=== PATIENT | female | born 1980 | race Caucasian/White ===

== ENCOUNTER → 2019-07-08 16:36 | Outpatient (CLI) | payer MEDICARE, SELFPAY | PROVIDERS: Visit Provider Obstetrics & Gynecology | DX: Z34.90 Encounter for supervision of normal pregnancy, unspecified, unspecified trimester (principal) | CPT/HCPCS: 36415; 84702 ==

== ENCOUNTER → 2019-07-11 12:23 | Outpatient (CLI) | payer MEDICARE, SELFPAY ==
[2019-07-11 13:31] LABS: Basophils # 0.1 K/mm3 (0-0.2); Basophils % 0.7 % (0.1-2.0); Eosinophils # 0.2 K/mm3 (0.0-0.4); Eosinophils % 2.2 % (0.1-12.0); Hematocrit 43.7 % (37.0-47.0); Hemoglobin 14.1 g/dL (12.2-16.2); Lymphocytes # 3.3 K/mm3 (0.7-4.5); Lymphocytes % 32.8 % (10-50); Mean Corpuscular HGB Conc 32.2 g/dL (31.8-35.4); Mean Corpuscular Volume 89.9 fl (81-99); Monocytes # 0.5 K/mm3 (0.1-1.0); Monocytes % 4.5 % (1.7-9.3); Neutrophils % 59.8 % (37.0-80.0); Platelet Count 503 K/mm3 (142-424); Red Blood Count 4.86 M/mm3 (4.20-5.40); Red Cell Distribution Width 13.8 % (11.5-17.5)
[2019-07-11 15:15] LABS: HCG,Quantitative 38431 mIU/mL
[2019-07-14 06:36] LABS: Hepatitis C Antibody <0.1 s/co ratio (0.0-0.9); Rapid Plasma Reagin Ab Titer Non Reactive (NonRea<1:1); Rubella Antibodies, IgG 2.11 index (Immune >0.99)
== END ==
PROVIDERS: Visit Provider Obstetrics & Gynecology
DX: Z34.90 Encounter for supervision of normal pregnancy, unspecified, unspecified trimester (principal)
CPT/HCPCS: 84702; 85025; 86592; 86762; 86850; 87380

== ENCOUNTER → 2019-07-16 12:54 | Outpatient (CLI) | payer MEDICARE, SELFPAY ==
--- NOTE | 2019-07-16 12:55 | US_ITS ---
PROCEDURE: US OB TRANSVAGINAL CLINICAL INDICATION: US OB Dates Early Ob check COMPARISON: No exams were available for comparison FINDINGS: An intrauterine gestational sac is present with a pole with a crown-rump length of 0.28 cm correlating to gestational age of 6 week. Heart flicker is noted but definite heart rate was not able to be obtained. 12 mm right corpus luteum cyst IMPRESSION: Live IUP at 6 weeks. Unable to get heart rate. Estimated due date by Ultrasound is 03/10/2020 Dictated by: Bronson Rossi MD 07/16/2019 13:47 Electronically signed by Bronson Rossi MD in [place] 07/16/2019 13:47
== END ==
PROVIDERS: PCP Obstetrics & Gynecology; Visit Provider Obstetrics & Gynecology
DX: O26.841 Uterine size-date discrepancy, first trimester (principal)
CPT/HCPCS: 76817

== ENCOUNTER → 2019-07-25 10:26 | Outpatient (CLI) | payer MEDICARE, MEDICAID, SELFPAY ==
--- NOTE | 2019-07-25 10:30 | US_ITS ---
PROCEDURE: US OB TRANSVAGINAL CLINICAL INDICATION: US OB T/V- Fetus Viability Follow-up early Ob ultrasound COMPARISON: US OB TRANSVAGINAL from 07/16/2019 FINDINGS: An intrauterine gestational sac is present with a pole with a crown-rump length of 0.22 cm correlating to gestational age of 5 weeks 6 days. heart tones are not visualized.. The crown-rump length is 2.2 mm. The crown-rump length was 2.8 mm on 07/16/2019. There is a small amount of fluid noted in the subendometrial area. There is a 15 mm right ovarian cyst. IMPRESSION: No heart flicker is evident on today's study and the crown-rump length is slightly smaller compared to the previous exam consistent with nonviable gestation. A small amount of fluid is present in the sub endometrial region. Dictated by: Bronson Rossi MD 07/25/2019 18:47 Electronically signed by Bronson Rossi MD in [place] 07/25/2019 18:47
== END ==
PROVIDERS: PCP Obstetrics & Gynecology; Visit Provider Obstetrics & Gynecology
DX: Z34.90 Encounter for supervision of normal pregnancy, unspecified, unspecified trimester (principal)
CPT/HCPCS: 76817

== ENCOUNTER → 2019-07-28 13:47 | Outpatient (CLI) | payer MEDICARE, MEDICAID, SELFPAY ==
[2019-07-28 16:04] LABS: HCG,Quantitative 71757 mIU/mL
== END ==
PROVIDERS: Visit Provider Obstetrics & Gynecology
DX: Z34.90 Encounter for supervision of normal pregnancy, unspecified, unspecified trimester (principal)
CPT/HCPCS: 36415; 84702

== ENCOUNTER → 2019-07-30 08:58 | Outpatient (CLI) | payer MEDICARE, MEDICAID, SELFPAY ==
--- NOTE | 2019-07-30 09:01 | US_ITS ---
PROCEDURE: US OB TRANSVAGINAL CLINICAL INDICATION: US T/V OB- Check viability COMPARISON: US OB TRANSVAGINAL from 07/25/2019 FINDINGS: There is an intrauterine gestational sac once again noted. A pole is present with a crown-rump length 2.5 mm correlating to gestational age of 5 weeks and 6 days. This is not significantly changed. No heart tones are present. The gestational sac has a somewhat irregular appearance and there is a small amount fluid around the endometrial area. There is a 14 mm right ovarian corpus luteum cyst. IMPRESSION: There is a gestational sac present with a pole but no heart tones. The pole is not changed in size. The findings are suggestive of nonviable gestation.. Dictated by: Bronson Rossi MD 07/30/2019 19:06 Electronically signed by Bronson Rossi MD in [place] 07/30/2019 19:06
== END ==
PROVIDERS: Visit Provider Obstetrics & Gynecology
DX: O36.80X0 Pregnancy with inconclusive fetal viability, not applicable or unspecified (principal)
CPT/HCPCS: 76817

== ENCOUNTER → 2019-08-27 13:14 | Outpatient (CLI) | payer MEDICARE, MEDICAID, SELFPAY ==
--- NOTE | 2019-08-27 13:15 | US_ITS ---
PROCEDURE: US TRANSVAGINAL CLINICAL INDICATION: US T/V- F/U on miscarriage The COMPARISON: US OB TRANSVAGINAL from 08/18/2019 FINDINGS: The uterus is 10 x 5 x 5 cm. Empty gestational sac once again noted measuring 3.7 x 0.8 cm. No pole or yolk sac apparent. There is a 13 mm right ovarian cyst. No cul-de-sac fluid is evident. IMPRESSION: Overall no significant change in the anechoic gestational sac. Dictated by: Bronson Rossi MD 08/27/2019 13:54 Electronically signed by Bronson Rossi MD in [place] 08/27/2019 13:54
== END ==
PROVIDERS: PCP Obstetrics & Gynecology; Visit Provider Obstetrics & Gynecology
DX: O03.4 Incomplete spontaneous abortion without complication (principal); R10.2 Pelvic and perineal pain
CPT/HCPCS: 76830

== ENCOUNTER → 2019-09-22 17:11 | Outpatient (CLI) | payer MEDICARE, MEDICAID, SELFPAY ==
[2019-09-22 17:32] LABS: Basophils # 0.1 K/mm3 (0-0.2); Basophils % 0.9 % (0.1-2.0); Eosinophils # 0.2 K/mm3 (0.0-0.4); Eosinophils % 2.3 % (0.1-12.0); Hematocrit 45.3 % (37.0-47.0); Hemoglobin 14.9 g/dL (12.2-16.2); Lymphocytes # 2.9 K/mm3 (0.7-4.5); Lymphocytes % 32.1 % (10-50); Mean Corpuscular HGB Conc 32.9 g/dL (31.8-35.4); Mean Corpuscular Hemoglobin 29.1 pg (27.0-31.2); Mean Corpuscular Volume 88.5 fl (81-99); Mean Platelet Volume 7.4 fl (7.4-10.4); Monocytes # 0.5 K/mm3 (0.1-1.0); Neutrophils # 5.2 K/mm3 (1.8-7.8); Neutrophils % 58.6 % (37.0-80.0); Platelet Count 477 K/mm3 (142-424); Red Blood Count 5.12 M/mm3 (4.20-5.40); Red Cell Distribution Width 13.2 % (11.5-17.5); White Blood Count 8.9 K/mm3 (4.8-10.8)
== END ==
PROVIDERS: Visit Provider Obstetrics & Gynecology
DX: O03.4 Incomplete spontaneous abortion without complication (principal)
CPT/HCPCS: 36415; 85025

== ENCOUNTER 2020-01-14 20:19 | Emergency (ER) | payer MEDICARE, MEDICAID, SELFPAY ==
[2020-01-14 20:41] VITALS: BP 138/85; PULSE 103; RESP 16; TEMP 37.2; O2SAT 96; BMI 29.7
--- NOTE | 2020-01-14 20:52 | XR_ITS ---
PROCEDURE: XR CHEST 2V CLINICAL HISTORY: chest pain COMPARISON: XR CHEST 2V from 04/27/2019 XR CHEST 2V from 04/29/2019 XR CHEST PORTABLE from 11/18/2019 FINDINGS: The cardiomediastinal silhouette and pulmonary vascularity are within normal limits. The lungs are clear without infiltrates, suspicious nodules, or pleural effusions. No acute bony abnormalities. IMPRESSION: No acute findings. Dictated by: Bronson Rossi MD 01/14/2020 22:41 Electronically signed by Bronson Rossi MD in [place] 01/14/2020 22:41
--- NOTE | 2020-01-14 20:55 | ECG_ITS ---
APPROVED REPORT Exam: Resting ECG HR:86 bpm ECG Measurements Heart Rate 86 AXES OR 124 P 51 QRSd 76 QRS 33 QT 362 T 20 QTc 433 <Conclusion> Normal sinus rhythm Normal ECG Electronically signed by : Sanjiv Machado, 01/16/2020 14:01:00
[2020-01-14 21:04] LABS: Microscopic, Urine URINE MICROSCOPIC (MICROSCOPIC)
[2020-01-14 21:10] LABS: Appearance,Urine CLEAR (Clear); Bilirubin,Urine Negative (Negative); Blood, Urine 2+ (Negative); Color,Urine YELLOW (Yellow); Glucose,Urine (UA) Negative (Negative); Ketones,Urine Negative (Negative); Leukocyte Esterase,Urine Negative (Negative); Nitrate,Urine Negative (Negative); Protein,Urine Negative (Negative); Specific Gravity, Urine >= 1.030 (1.005-1.030); Urobilinogen,Urine 0.2 EU/dl (0.2)
[2020-01-14 21:12] LABS: Chloride 104 mmol/L (98-107); Potassium 3.8 mmoL/L (3.5-5.1); Sodium 141 mmol/L (136-145)
[2020-01-14 21:15] LABS: Alanine Aminotransferase 17 U/L (12-78); Albumin Level 4.8 g/dl (3.5-5.0); Alkaline Phosphatase 42 U/L (38-126); Anion Gap 12.8 mEq/L (5-15); Aspartate Amino Transferase 24 U/L (14-36); Bilirubin,Direct 0.3 mg/dl (0.0-0.4); Bilirubin,Indirect 0.4 mg/dL (0.0-0.9); Bilirubin,Total 0.7 mg/dl (0.2-1.3); Bilirubin,Unconjugated 0.5 mg/dL (0.0-1.1); Blood Urea Nitrogen 11 mg/dl (7-17); Calcium 9.8 mg/dl (8.4-10.2); Carbon Dioxide 28 mmol/L (22.0-30.0); Creatinine Clearance Estimated 104 mL/min (50-200); Estimated Glomerular Filt Rate 80 ml/min (>60); GFR (African American) 97 ML/MIN (>60); Glucose 99 mg/dl (74-100); Total Protein,Serum 8.2 g/dl (6.3-8.2)
[2020-01-14 21:18] LABS: Urine Pregnancy, HCG Qual. Negative (Negative)
[2020-01-14 21:19] LABS: Bacteria,Urine Trace /lpf; WBC,Urine Occasional #/hpf (0-3)
[2020-01-14 21:20] VITALS: BP 132/83; PULSE 94; RESP 16; O2SAT 98
[2020-01-14 21:20] LABS: Barbiturates Screen,Urine Negative ng/ml (<200)
[2020-01-14 21:21] LABS: Benzodiazepines Screen,Urine Negative ng/ml (<200)
[2020-01-14 21:22] LABS: Amphetamine/Metha Screen,Urine Negative ng/ml (<1000); Cannabinoid Screen,Urine Negative ng/ml (<50)
[2020-01-14 21:23] LABS: Cocaine Screen,Urine Negative ng/ml (<300)
[2020-01-14 21:24] LABS: Methadone Screen,Urine Negative ng/ml (<300); Opiate Screen,Urine Negative ng/ml (<300)
[2020-01-14 21:25] LABS: Phencyclidine Screen,Urine Negative ng/ml (<25)
--- NOTE | 2020-01-14 21:29 | HMH.EDCP ---
ED Disposition Clinical Impression: Atypical chest pain, Thrombocytosis Upper extremity pain Qualifiers: Laterality: bilateral Qualified Code(s): M79.601 - Pain in right arm; M79.602 - Pain in left arm Disposition: Home, Self-Care Condition on Discharge: Good Instructions: DI for Atypical Chest Pain Additional Instructions: see pcp in am as planned Referrals: Provider,Referral, [Primary Care Provider] - - Critical Care Critical Care Time: No Attestation: On 01/14/20, the high probability of a clinically significant, sudden or life threatening deterioration of the following system(s) required my full and direct attention, intervention and personal management. The time I documented below is in addition to time spent performing reported procedures but includes the following listed in this critical care notation. Medical Decision Making - Medical Records Medical records reviewed: Yes: I reviewed the patient's medical records. - Ger Inquiry Pt receiving controlled substance: No Vital Signs: 01/14/20 20:41 Temperature 99.0 F Temperature Source Oral Pulse Rate [Right] 103 H Respiratory Rate 16 Blood Pressure [Right Arm] 138/85 Blood Pressure Mean [Right Arm] 102 Blood Pressure Source [Right Arm] Automatic Cuff Blood Pressure Position [Right Arm] Sitting 02 Sat by Pulse Oximetry 96 Oxygen Delivery Method Room Air - Lab Data Lab results reviewed: Yes: I reviewed the patient's lab results. Lab Results 01/14/20 21:00: Urine Color Yellow, Urine Appearance Clear, Urine pH 6.0, Ur Specific [place] >= 1.030, Urine Protein Negative, Urine Glucose (UA) Negative, Urine Ketones Negative, Urine Blood 2+, Urine Nitrate Negative, Urine Bilirubin Negative, Urine Urobilinogen 0.2, Ur Leukocyte Esterase Negative, Urine WBC Occasional, Ur Squamous Epith Cells 5-10, Urine Bacteria Trace 01/14/20 21:00: WBC 10.1, RBC 5.15, Hgb 15.3, Hct 44.2, MCV 85.8, MCH 29.7, MCHC 34.5, RDW 13.4, Plt Count 457 H, MPV 7.5, Neut % (Auto) 57.0, Lymph % (Auto) 30.9, [place] % (Auto) 6.5, Eos % (Auto) 3.6, Baso % (Auto) 2.0, Neut # (Auto) 5.8, Lymph # (Auto) 3.1, [place] # (Auto) 0.7, Eos # (Auto) 0.4, Baso # (Auto) 0.2 01/14/20 21:00: Urine HCG, Qual Negative 01/14/20 21:00: Sodium 141, Potassium 3.8, Chloride 104, Carbon Dioxide 28, Anion Gap 12.8, BUN 11, Creatinine 0.80, Estimated Creat Clear 104, Estimated GFR 80, Est GFR ( Amer) 97, Glucose 99, Calcium 9.8, Total Bilirubin 0.7, Direct Bilirubin 0.3, Conjugated Bilirubin 0.0, Indirect Bilirubin 0.4, Unconjugated Bilirubin 0.5, AST 24, ALT 17, Alkaline Phosphatase 42, Troponin I < 0.01, Total Protein 8.2, Albumin 4.8 01/14/20 21:00: Urine Opiates Screen Negative, Urine Methadone Screen Negative, Ur Barbituates Screen Negative, Ur Phencyclidine Scrn Negative, Ur Amphetamines Screen Negative, U Benzodiazepines Scrn Negative, Urine Cocaine Screen Negative, U Marijuana (THC) Screen Negative Result diagrams: 01/14/20 21:00 01/14/20 21:00 Orders (Tests/Meds): ED MEDICATIONS Generic Name Dose Route Start Last Admin Trade Name Freq PRN Reason Stop Dose Admin Sodium Chloride 1,000 mls @ 999 mls/hr 01/14/20 21:00 01/14/20 21:07 Sod Chlor 0.9% 1000ml Bag IV 01/14/20 22:00 999 mls/hr .Q1H1M SADIQ Administration ORDERS Category Date Time Status XR chest 2V Stat Exams 01/14/20 20:52 Taken C-Reactive Protein Stat Lab 01/14/20 22:21 Ordered ESR [Erythrocyte Sedimentation Rate] Stat Lab 01/14/20 22:21 Ordered Peripheral Smear Review Routine Lab 01/14/20 22:27 Ordered T4 (Thyroxine) Stat Lab 01/14/20 22:21 Ordered TSH [Thyroid Stimulating Hormone] Stat Lab 01/14/20 22:21 Ordered Troponin I Q3H Lab 01/14/20 22:21 Ordered Troponin I Q3H Lab 01/15/20 02:53 Ordered - Radiology Data #1 Image(s): Chest Image Reviewed: Yes I reviewed the patient's radiology image Preliminary Findings: Normal/NAD - ECG Data Tracing #1 Normal Sinus Rhythm: Yes Ischemic
[2020-01-14 21:31] LABS: Basophils # 0.2 K/mm3 (0-0.2); Eosinophils # 0.4 K/mm3 (0.0-0.4); Eosinophils % 3.6 % (0.1-12.0); Hematocrit 44.2 % (37.0-47.0); Hemoglobin 15.3 g/dL (12.2-16.2); Lymphocytes # 3.1 K/mm3 (0.7-4.5); Lymphocytes % 30.9 % (10-50); Mean Corpuscular HGB Conc 34.5 g/dL (31.8-35.4); Mean Corpuscular Hemoglobin 29.7 pg (27.0-31.2); Mean Corpuscular Volume 85.8 fl (81-99); Mean Platelet Volume 7.5 fl (7.4-10.4); Monocytes # 0.7 K/mm3 (0.1-1.0); Monocytes % 6.5 % (1.7-9.3); Neutrophils # 5.8 K/mm3 (1.8-7.8); Platelet Count 457 K/mm3 (142-424); Red Blood Count 5.15 M/mm3 (4.20-5.40); Red Cell Distribution Width 13.4 % (11.5-17.5); White Blood Count 10.1 K/mm3 (4.8-10.8)
[2020-01-14 21:33] LABS: Troponin I < 0.01 ng/ml (0.00-0.034)
[2020-01-14 22:17] VITALS: BP 127/79; PULSE 87; RESP 16; O2SAT 97
[2020-01-14 23:08] LABS: Erythrocyte Sedimentation Rate 5 mm/hr (0-20)
[2020-01-14 23:11] VITALS: BP 118/72; PULSE 76; RESP 16; O2SAT 98
[2020-01-14 23:29] LABS: T4 (Thyroxine) 8.9 ug/dl (5.53-11.0)
[2020-01-14 23:31] VITALS: BP 111/66; PULSE 66; RESP 16; TEMP 37.2; O2SAT 96
[2020-01-14 23:43] LABS: Thyroid Stimulating Hormone 0.98 uIU/mL (0.465-4.68)
[2020-01-16 22:29] LABS: Peripheral Smear Review Scanned Result
== END 2020-01-14 23:32 | disposition home or self-care (01) ==
PROVIDERS: Emergency Provider Emergency Medicine
DX: R07.89 Other chest pain (principal); D47.3 Essential (hemorrhagic) thrombocythemia; M79.601 Pain in right arm; M79.602 Pain in left arm; F17.210 Nicotine dependence, cigarettes, uncomplicated; Z90.49 Acquired absence of other specified parts of digestive tract; R20.2 Paresthesia of skin
CPT/HCPCS: 71046; 80048; 80076; 80305; 81001; 81025; 84436; 84443; 84484; 85025; 85651; 86140; 93005; 96365; 96375; 99284

== ENCOUNTER → 2020-01-26 14:00 | Outpatient (CLI) | payer MEDICARE, MEDICAID, SELFPAY ==
--- NOTE | 2020-01-26 14:03 | US_ITS ---
PROCEDURE: US THYROID CLINICAL INDICATION: THYROMEGALY COMPARISON: No exams were available for comparison FINDINGS: Right lobe: Right lobe is 3.9 x 1.1 x 1.4 cm. There is a 5 x 5 mm isoechoic nodule in the lower pole unchanged Left lobe: 3.7 x 1.2 x 1.6 cm Isthmus: Unremarkable Additional findings: IMPRESSION: No change 5 mm nodule in the right. No new nodules evident Dictated by: Bronson Rossi MD 01/26/2020 18:52 Electronically signed by Bronson Rossi MD in [place] 01/26/2020 18:52
--- NOTE | 2020-01-26 15:22 | MR_ITS ---
PROCEDURE: MR HEAD/BRAIN WO CON CLINICAL INDICATION: PARESTHESIA OF SKIN, HEADACHES Severe headache, facial numbness a COMPARISON: No exams were available for comparison TECHNIQUE: Routine multiplanar multi echo sequences are performed without gadolinium enhancement. FINDINGS: No midline shift, mass effect, intracranial hemorrhage, or hydrocephalus. No evidence of acute infarction. The cerebellopontine angles, cerebellum, and brainstem are unremarkable. The pituitary, optic chiasm, corpus callosum, and craniocervical junction have an unremarkable appearance. No mastoid effusion. There is mild mucosal thickening of the paranasal sinuses without air-fluid level. IMPRESSION: No acute intracranial findings. Dictated by: Bronson Rossi MD 01/27/2020 14:20 Electronically signed by Bronson Rossi MD in [place] 01/27/2020 14:20
== END ==
PROVIDERS: PCP Nurse Practitioner Family; Visit Provider Nurse Practitioner Family
DX: E01.0 Iodine-deficiency related diffuse (endemic) goiter (principal); R20.2 Paresthesia of skin; R20.0 Anesthesia of skin; R51 Headache
CPT/HCPCS: 70551; 76536

== ENCOUNTER → 2020-01-27 09:42 | Outpatient (CLI) | payer MEDICARE, MEDICAID, SELFPAY ==
[2020-01-27 11:49] LABS: Free Thyroxine Index 2.4 ug/dL (5.93-13.13); T4 (Thyroxine) 7.6 ug/dl (5.53-11.0); Triiodothryronine (T3) Uptake 32 % (23.5-40.5)
[2020-01-27 12:03] LABS: Thyroid Stimulating Hormone 1.35 uIU/mL (0.465-4.68)
[2020-01-28 09:41] LABS: Progesterone 8.4 ng/mL (.)
== END ==
PROVIDERS: Visit Provider Obstetrics & Gynecology
DX: N92.6 Irregular menstruation, unspecified (principal); Z79.899 Other long term (current) drug therapy
CPT/HCPCS: 36415; 84144; 84436; 84443; 84479

== ENCOUNTER → 2020-03-01 13:49 | Outpatient (CLI) | payer MEDICARE, MEDICAID, SELFPAY ==
[2020-03-01 16:07] LABS: HCG,Quantitative 69 mIU/ml (0-5.42)
== END ==
PROVIDERS: Visit Provider Obstetrics & Gynecology
DX: R10.2 Pelvic and perineal pain (principal); Z32.00 Encounter for pregnancy test, result unknown
CPT/HCPCS: 36415; 84702

== ENCOUNTER → 2020-03-03 14:41 | Outpatient (CLI) | payer MEDICARE, MEDICAID, SELFPAY ==
[2020-03-03 15:59] LABS: HCG,Quantitative 202 mIU/ml (0-5.42)
== END ==
PROVIDERS: Visit Provider Obstetrics & Gynecology
DX: R10.2 Pelvic and perineal pain (principal); Z32.00 Encounter for pregnancy test, result unknown
CPT/HCPCS: 36415; 84702

== ENCOUNTER → 2020-03-08 11:39 | Outpatient (CLI) | payer MEDICARE, MEDICAID, SELFPAY ==
[2020-03-08 12:51] LABS: HCG,Quantitative 3495 mIU/ml (0-5.42)
== END ==
PROVIDERS: Visit Provider Obstetrics & Gynecology
DX: R10.2 Pelvic and perineal pain (principal); Z32.00 Encounter for pregnancy test, result unknown
CPT/HCPCS: 36415; 84702

== ENCOUNTER → 2020-03-11 12:21 | Outpatient (CLI) | payer MEDICARE, MEDICAID, SELFPAY ==
[2020-03-11 13:44] LABS: HCG,Quantitative 13499 mIU/ml (0-5.42)
== END ==
PROVIDERS: Visit Provider Obstetrics & Gynecology
DX: R10.2 Pelvic and perineal pain (principal); Z32.00 Encounter for pregnancy test, result unknown
CPT/HCPCS: 36415; 84702

== ENCOUNTER → 2020-03-19 11:26 | Outpatient (CLI) | payer MEDICARE, MEDICAID, SELFPAY ==
--- NOTE | 2020-03-19 11:27 | US_ITS ---
PROCEDURE: US OB TRANSVAGINAL CLINICAL INDICATION: US OB Dates LMP: 02/03/2020 COMPARISON: US OB TRANSVAGINAL from 08/18/2019 FINDINGS: An intrauterine gestational sac is present with a pole with a crown-rump length of 0.55cm correlating to gestational age of 6weeks 4days. heart tones are present with an FHR of 121bpm. Yolk sac is noted. Normal appearing bilateral ovaries. IMPRESSION: A single alive intrauterine is seen with estimated gestational age: 6 weeks 4 days and SAMEER 11/08/2020. Based on LMP gestational age: 6 weeks 3 days and SAMEER: 11/09/2020. Dictated by: Cyn Streeter 03/19/2020 12:13 Electronically signed by Cyn Streeter in [place] 03/19/2020 12:13
== END ==
PROVIDERS: PCP Nurse Practitioner Family; Visit Provider Obstetrics & Gynecology
DX: O26.841 Uterine size-date discrepancy, first trimester (principal)
CPT/HCPCS: 76817

== ENCOUNTER → 2020-03-31 14:56 | Outpatient (CLI) | payer MEDICARE, MEDICAID, SELFPAY ==
[2020-03-31 15:31] LABS: Basophils # 0.1 K/mm3 (0-0.2); Basophils % 0.4 % (0.1-2.0); Eosinophils # 0.2 K/mm3 (0.0-0.4); Eosinophils % 1.8 % (0.1-12.0); Hematocrit 39.9 % (37.0-47.0); Hemoglobin 13.5 g/dL (12.2-16.2); Lymphocytes # 2.1 K/mm3 (0.7-4.5); Lymphocytes % 15.4 % (10-50); Mean Corpuscular HGB Conc 33.9 g/dL (31.8-35.4); Mean Corpuscular Hemoglobin 29.6 pg (27.0-31.2); Mean Corpuscular Volume 87.2 fl (81-99); Mean Platelet Volume 7.6 fl (7.4-10.4); Monocytes # 0.5 K/mm3 (0.1-1.0); Monocytes % 3.8 % (1.7-9.3); Neutrophils # 10.7 K/mm3 (1.8-7.8); Neutrophils % 78.6 % (37.0-80.0); Platelet Count 407 K/mm3 (142-424); Red Blood Count 4.57 M/mm3 (4.20-5.40); Red Cell Distribution Width 13.7 % (11.5-17.5); White Blood Count 13.6 K/mm3 (4.8-10.8)
[2020-03-31 23:01] LABS: Amphetamine/Metha Screen,Urine Negative ng/ml (<1000); Barbiturates Screen,Urine Negative ng/ml (<200)
[2020-03-31 23:02] LABS: Benzodiazepines Screen,Urine Negative ng/ml (<200)
[2020-03-31 23:03] LABS: Cannabinoid Screen,Urine Negative ng/ml (<50); Cocaine Screen,Urine Negative ng/ml (<300)
[2020-03-31 23:04] LABS: Methadone Screen,Urine Negative ng/ml (<300)
[2020-03-31 23:05] LABS: Opiate Screen,Urine Negative ng/ml (<300); Phencyclidine Screen,Urine Negative ng/ml (<25)
[2020-04-02 14:15] LABS: Hepatitis C Antibody <0.1 s/co ratio (0.0-0.9); Rapid Plasma Reagin Ab Titer Non Reactive (NonRea<1:1); Rubella Antibodies, IgG 2.19 index (Immune >0.99)
== END ==
PROVIDERS: Visit Provider Obstetrics & Gynecology
DX: Z34.90 Encounter for supervision of normal pregnancy, unspecified, unspecified trimester (principal); Z3A.08 8 weeks gestation of pregnancy; Z79.899 Other long term (current) drug therapy
CPT/HCPCS: 80305; 85025; 86592; 86762; 86850; 87380

== ENCOUNTER → 2020-04-14 08:41 | Outpatient (CLI) | payer MEDICARE, MEDICAID, SELFPAY ==
--- NOTE | 2020-04-14 08:54 | US_ITS ---
PROCEDURE: US OB TRANSVAGINAL CLINICAL INDICATION: US OB- confirm viability, history of miscarriages COMPARISON: US US OB TRANSVAGINAL from 03/19/2020 FINDINGS: An intrauterine gestational sac is present with a pole with a crown-rump length of 3.23cm correlating to gestational age of 10weeks 1day. heart tones are present with an FHR of 182bpm. Yolk sac is noted. IMPRESSION: Live IUP at 10 weeks 1 day Estimated due date by Ultrasound is 11/09/2020 Dictated by: Bronson Rossi MD 04/14/2020 14:53 Bronson Rossi MD in [place] 04/14/2020 14:53
== END ==
PROVIDERS: PCP Nurse Practitioner Family; Visit Provider Obstetrics & Gynecology
DX: O36.80X0 Pregnancy with inconclusive fetal viability, not applicable or unspecified; Z87.59 Personal history of other complications of pregnancy, childbirth and the puerperium
CPT/HCPCS: 76817

== ENCOUNTER → 2020-05-17 09:24 | Outpatient (CLI) | payer MEDICARE, MEDICAID, SELFPAY ==
--- NOTE | 2020-05-17 09:37 | US_ITS ---
PROCEDURE: US OB >= 14 WEEKS FETUS CLINICAL INDICATION: US OB T/V- Bleeding during Intermittent bleeding with COMPARISON: US US OB TRANSVAGINAL from 04/14/2020 FINDINGS: There is a single live fetus present in breech presentation. Placenta is posterior and grade 1. heart tones and motion noted. Average ultrasound age is 15 weeks 1 day. BPD 15 weeks 3 days, OFD 15 weeks 4 days, HC 15 weeks 2 days, AC 15 weeks 0 days, FL 14 weeks 6 days. Heart rate is 161 BPM. This does not constitute an anatomy exam. Cervix is closed and measures 4 cm. IMPRESSION: Live IUP at 15 weeks 1 day. See above for detail Estimated due date by Ultrasound is 11/07/2020 Dictated by: Bronson Rossi MD 05/17/2020 18:42 Bronson Rossi MD in [place] 05/17/2020 18:42
== END ==
PROVIDERS: Visit Provider Obstetrics & Gynecology
DX: O46.90 Antepartum hemorrhage, unspecified, unspecified trimester (principal)
CPT/HCPCS: 76805

== ENCOUNTER → 2020-07-30 08:24 | Outpatient (CLI) | payer MEDICARE, MEDICAID, SELFPAY ==
[2020-07-30 09:27] LABS: Basophils # 0.1 K/mm3 (0-0.2); Basophils % 0.5 % (0.1-2.0); Eosinophils # 0.4 K/mm3 (0.0-0.4); Eosinophils % 2.9 % (0.1-12.0); Hematocrit 41.9 % (37.0-47.0); Hemoglobin 13.6 g/dL (12.2-16.2); Lymphocytes # 2.8 K/mm3 (0.7-4.5); Lymphocytes % 19.4 % (10-50); Mean Corpuscular HGB Conc 32.5 g/dL (31.8-35.4); Mean Corpuscular Hemoglobin 29.4 pg (27.0-31.2); Mean Corpuscular Volume 90.5 fl (81-99); Mean Platelet Volume 9.7 fl (7.4-10.4); Monocytes # 0.8 K/mm3 (0.1-1.0); Monocytes % 5.4 % (1.7-9.3); Neutrophils # 10.4 K/mm3 (1.8-7.8); Neutrophils % 71.7 % (37.0-80.0); Platelet Count 520 K/mm3 (142-424); Red Blood Count 4.63 M/mm3 (4.20-5.40); Red Cell Distribution Width 13.5 % (11.5-17.5); White Blood Count 14.5 K/mm3 (4.8-10.8)
[2020-07-30 10:53] LABS: Glucose 1 Hour 108 mg/dL (74-100)
[2020-07-30 14:35] LABS: Glucose,Fasting 74 mg/dl (74-100)
== END ==
PROVIDERS: Visit Provider Obstetrics & Gynecology
DX: Z34.90 Encounter for supervision of normal pregnancy, unspecified, unspecified trimester (principal)
CPT/HCPCS: 36415; 82951; 85025

== ENCOUNTER → 2020-08-19 10:07 | Outpatient (CLI) | payer MEDICARE, MEDICAID, SELFPAY ==
[2020-08-19 12:21] LABS: Free Thyroxine Index 2.3 ug/dL (5.93-13.13); T4 (Thyroxine) 11.6 ug/dl (5.53-11.0); Triiodothryronine (T3) Uptake 20 % (23.5-40.5)
[2020-08-19 12:34] LABS: Thyroid Stimulating Hormone 0.47 uIU/mL (0.465-4.68)
== END ==
PROVIDERS: Visit Provider Obstetrics & Gynecology
DX: Z34.90 Encounter for supervision of normal pregnancy, unspecified, unspecified trimester (principal); E05.90 Thyrotoxicosis, unspecified without thyrotoxic crisis or storm
CPT/HCPCS: 36415; 84436; 84443; 84479

== ENCOUNTER → 2020-10-07 13:35 | Outpatient (CLI) | payer MEDICARE, MEDICAID, SELFPAY ==
--- NOTE | 2020-10-07 13:35 | US_ITS ---
PROCEDURE: US OB BIOPHYSICAL PROFILE CLINICAL INDICATION: US OB BPP IFEOMA- polyhydramnios TECHNIQUE: FINDINGS: The following parameters are obtained: Gestational Age (LMP) 35 weeks 2 days estimated due date (LMP) 11/09/2020. Heart Rate 133 bpm Cephalic position Amniotic fluid index: 16.16cm Qualitative AFV: 2 breathing movements: 2 Gross body movements: 2 Tone: 2 Biophysical profile score: 8 No obvious anomalies evident. Placenta: Posterior, grade 1-2 Cervix: Closed, 3.0 centimeters IMPRESSION: Normal biophysical profile. Amniotic index within normal limits. Dictated by: Meenakshi Baires MD 10/08/2020 08:58 Meenakshi Baires MD in [place] 10/08/2020 08:58
== END ==
PROVIDERS: Visit Provider Obstetrics & Gynecology
DX: O40.9XX0 Polyhydramnios, unspecified trimester, not applicable or unspecified (principal); Z3A.35 35 weeks gestation of pregnancy
CPT/HCPCS: 76819

== ENCOUNTER → 2020-10-11 16:53 | Outpatient (CLI) | payer MEDICARE, MEDICAID, SELFPAY | PROVIDERS: Visit Provider Obstetrics & Gynecology | DX: Z34.90 Encounter for supervision of normal pregnancy, unspecified, unspecified trimester (principal) | CPT/HCPCS: 86403 ==

== ENCOUNTER 2020-10-13 15:11 | Outpatient (CLI) | payer MEDICARE, MEDICAID, SELFPAY ==
[2020-10-13 15:45] VITALS: BP 117/80; PULSE 102; RESP 20; TEMP 37; O2SAT 100; BMI 29.2
[2020-10-13 15:46] VITALS: BMI 34.3
[2020-10-13 15:55] LABS: Microscopic, Urine URINE MICROSCOPIC (MICROSCOPIC)
[2020-10-13 15:58] LABS: Appearance,Urine SL CLOUDY (Clear); Bilirubin,Urine Negative (Negative); Blood, Urine Negative (Negative); Color,Urine YELLOW (Yellow); Glucose,Urine (UA) Negative (Negative); Ketones,Urine Negative (Negative); Leukocyte Esterase,Urine Negative (Negative); Nitrate,Urine Negative (Negative); Protein,Urine Negative (Negative); Specific Gravity, Urine 1.025 (1.005-1.030); Urobilinogen,Urine 0.2 EU/dl (0.2)
[2020-10-13 16:09] LABS: Amphetamine/Metha Screen,Urine Negative ng/ml (<1000); Barbiturates Screen,Urine Negative ng/ml (<200)
[2020-10-13 16:09] LABS: Fetal Membrane Rupture (Rapid) Negative (Negative)
[2020-10-13 16:10] LABS: Benzodiazepines Screen,Urine Negative ng/ml (<200)
[2020-10-13 16:11] LABS: Cannabinoid Screen,Urine Negative ng/ml (<50); Cocaine Screen,Urine Negative ng/ml (<300)
[2020-10-13 16:12] LABS: Methadone Screen,Urine Negative ng/ml (<300)
[2020-10-13 16:15] LABS: Opiate Screen,Urine Negative ng/ml (<300); Phencyclidine Screen,Urine Negative ng/ml (<25)
[2020-10-13 16:34] LABS: Bacteria,Urine 1+ /lpf
== END 2020-10-13 18:11 | disposition home or self-care (01) ==
LOC: OBOUT 15:14 → OB 15:15
PROVIDERS: PCP Obstetrics & Gynecology; Visit Provider Nurse Practitioner Obstetrics & Gynecology
DX: O47.03 False labor before 37 completed weeks of gestation, third trimester (principal); O09.529 Supervision of elderly multigravida, unspecified trimester; Z79.899 Other long term (current) drug therapy; Z3A.36 36 weeks gestation of pregnancy
CPT/HCPCS: 59025; 80305; 81001; 84112; 96365; G0463

== ENCOUNTER → 2020-10-24 08:44 | Outpatient (CLI) | payer MEDICARE, MEDICAID, SELFPAY ==
[2020-10-24 09:16] LABS: Basophils # 0.1 K/mm3 (0-0.2); Basophils % 0.5 % (0.1-2.0); Eosinophils # 0.3 K/mm3 (0.0-0.4); Hematocrit 41.5 % (37.0-47.0); Hemoglobin 13.2 g/dL (12.2-16.2); Lymphocytes # 3.6 K/mm3 (0.7-4.5); Lymphocytes % 22.8 % (10-50); Mean Corpuscular HGB Conc 31.7 g/dL (31.8-35.4); Mean Corpuscular Hemoglobin 26.2 pg (27.0-31.2); Mean Corpuscular Volume 82.6 fl (81-99); Mean Platelet Volume 8.4 fl (7.4-10.4); Monocytes # 0.7 K/mm3 (0.1-1.0); Monocytes % 4.5 % (1.7-9.3); Neutrophils # 11.1 K/mm3 (1.8-7.8); Neutrophils % 70.1 % (37.0-80.0); Platelet Count 590 K/mm3 (142-424); Red Blood Count 5.02 M/mm3 (4.20-5.40); Red Cell Distribution Width 14.7 % (11.5-17.5); White Blood Count 15.8 K/mm3 (4.8-10.8)
[2020-10-24 09:18] LABS: MANUAL DIFFERENTIAL MANUAL DIFFERENTIAL (MANUAL DIFF)
[2020-10-24 09:50] LABS: Eosinophils % 1 % (0-3); Hypochromasia 1+; Lymphocytes % 23 % (10-50); Monocytes % 4 % (2-9); Neutrophils % 72 % (42-76); Platelet Estimate Moderate Increase; Total Cells Counted 100
[2020-10-24 09:51] LABS: Barbiturates Screen,Urine Negative ng/ml (<200)
[2020-10-24 09:52] LABS: Benzodiazepines Screen,Urine Negative ng/ml (<200)
[2020-10-24 09:53] LABS: Amphetamine/Metha Screen,Urine Negative ng/ml (<1000); Cocaine Screen,Urine Negative ng/ml (<300)
[2020-10-24 09:54] LABS: Methadone Screen,Urine Negative ng/ml (<300)
[2020-10-24 09:55] LABS: Cannabinoid Screen,Urine Negative ng/ml (<50); Opiate Screen,Urine Negative ng/ml (<300)
[2020-10-24 09:56] LABS: Phencyclidine Screen,Urine Negative ng/ml (<25)
[2020-10-24 10:03] LABS: Alanine Aminotransferase 11 U/L (12-78); Albumin Level 4.1 g/dl (3.5-5.0); Albumin/Globulin Ratio 1.2 (1.1-1.8); Alkaline Phosphatase 179 U/L (38-126); Anion Gap 15.1 mEq/L (5-15); Aspartate Amino Transferase 20 U/L (14-36); Bilirubin,Total 0.8 mg/dl (0.2-1.3); Blood Urea Nitrogen 5 mg/dl (7-17); Calcium 10.1 mg/dl (8.4-10.2); Carbon Dioxide 22 mmol/L (22.0-30.0); Chloride 102 mmol/L (98-107); Estimated Glomerular Filt Rate 111 ml/min (>60); GFR (African American) 135 ML/MIN (>60); Globulin 3.3 g/dL (1.3-3.2); Glucose 109 mg/dl (74-100); Potassium 4.1 mmoL/L (3.5-5.1); Sodium 135 mmol/L (136-145); Total Protein,Serum 7.4 g/dl (6.3-8.2)
[2020-10-26 15:42] LABS: Hep B Surface Ab, Qual Reactive (.)
== END ==
PROVIDERS: PCP Physician Assistant; Visit Provider Obstetrics & Gynecology
DX: Z01.818 Encounter for other preprocedural examination (principal); Z11.52 Encounter for screening for COVID-19
CPT/HCPCS: 36415; 80053; 80305; 85007; 85025; 86706; 86850; U0003

== ENCOUNTER 2020-10-25 04:54 | Inpatient (IN) | payer MEDICARE, MEDICAID, SELFPAY ==
[2020-10-25] VITALS (8 sets, daily range): BP systolic 108–147; BP diastolic 50–81; PULSE 60–99; RESP 12–18; TEMP 36.2–36.9; O2SAT 98–100; BMI 34.0
[2020-10-25 06:20] LABS: Microscopic, Urine URINE MICROSCOPIC (MICROSCOPIC)
[2020-10-25 06:59] LABS: Appearance,Urine CLEAR (Clear); Bilirubin,Urine Negative (Negative); Blood, Urine Negative (Negative); Color,Urine YELLOW (Yellow); Glucose,Urine (UA) Negative (Negative); Ketones,Urine Negative (Negative); Leukocyte Esterase,Urine Negative (Negative); Nitrate,Urine Negative (Negative); PH,Urine 5.5 (5.0-8.5); Protein,Urine Negative (Negative); Specific Gravity, Urine 1.025 (1.005-1.030); Urobilinogen,Urine 0.2 EU/dl (0.2)
[2020-10-25 07:10] LABS: Benzodiazepines Screen,Urine Negative ng/ml (<200)
[2020-10-25 07:11] LABS: Amphetamine/Metha Screen,Urine Negative ng/ml (<1000); Barbiturates Screen,Urine Negative ng/ml (<200); RBC,Urine Occasional #/hpf (0-3)
[2020-10-25 07:12] LABS: Cannabinoid Screen,Urine Negative ng/ml (<50)
[2020-10-25 07:13] LABS: Cocaine Screen,Urine Negative ng/ml (<300); Methadone Screen,Urine Negative ng/ml (<300)
[2020-10-25 07:14] LABS: Opiate Screen,Urine Negative ng/ml (<300)
[2020-10-25 07:15] LABS: Phencyclidine Screen,Urine Negative ng/ml (<25)
--- NOTE | 2020-10-25 07:26 | HMH.ANESCL ---
[facility] Anesthesia Checklist - Structural Data Admitted From: Inpatient Planned Operative Procedure/s: c/section Consent for Planned Operative Procedure(s) Verified: Yes - Additional verifications Anesthesia Reactions: No Hx Blood Transfusions: No Blood Transfusion Reaction: No - Airway Assessment C-Spine Mobility Assessed: Yes TMJ Mobility Assessed: Yes Dentition: Good Dentition - Neurological Assessment Level of Consciousness: Awake, Alert, Appropriate - Anesthesia Plan Anesthesia Risk discussed: Yes Anesthesia Plan: Verified ASA Class: II Anesthesia Type: Spinal - Preoperative Comments Pre-Operative Comments: pt requests something for anxiety . I explained that baby gets any medication that I give her, pt states I want the medication anyway, I get it for every c/section' [facility] History I have reviewed the patient's past medical history: Yes Medical History: Reports:: Anxiety, Arrhythmia, Depression, Hyperlipidemia, MRSA Denies:: Cancer, Diabetes Mellitus Type 1, Diabetes Mellitus Type 2, Internal Pacemaker, Seizures *Have you ever received a pneumonia vaccine?: No *Have you received a flu vaccine this season?: Yes Other Medical History: Reports: Thyroid Disease. Denies: Blood Transfusion Reaction Anesthesia experience/problems:: none Other Surgeries: Yes: Cholecystectomy, , Dilation and Curettage. No: Pacemaker Amputation: No Fractures: No - *Social History Smoking Status: Current every day smoker Tobacco Type: cigarettes # Packs/Day (cigarettes): 1 Alcohol Intake: never Substance Use Type: denies use *Occupational Status:: unemployed Housing: house Household Members: spouse *Travel in the last 8 weeks: None - Psychiatric History Pschychiatric History:: Reports:: Anxiety, Depression Family Hx:: Cancer, Heart Attack, Hypertension Para: 6
--- NOTE | 2020-10-25 07:41 | HMH.OBAPHP ---
OB - H&P: HPI Antepartum - History of Present Illness Chief complaint: scheduled c section and tubal ligation History of present illness: 38+ weeks for scheduled c section and tubal ligation complicated by Advanced Maternal Age, previous c section x 4, polyhydramnios, hyperthyroidism, severe anxiety, tobacco abuse and VSD. Earlier in the there was concern for possible morbidly adherent placenta, but this was eventually ruled out by MFM in third trimester. Desires permanent sterilization with tubal ligation to be done concurrent with delivery via c section; MAP forms signed in advance and on chart. [facility] History I have reviewed the patient's past medical history: Yes Medical History: Reports:: Anxiety, Arrhythmia, Depression, Hyperlipidemia, MRSA Denies:: Cancer, Diabetes Mellitus Type 1, Diabetes Mellitus Type 2, Internal Pacemaker, Seizures *Have you ever received a pneumonia vaccine?: No *Have you received a flu vaccine this season?: Yes Other Medical History: Reports: Thyroid Disease. Denies: Blood Transfusion Reaction Anesthesia experience/problems:: none Other Surgeries: Yes: Cholecystectomy, , Dilation and Curettage. No: Pacemaker Amputation: No Fractures: No - *Social History Smoking Status: Current every day smoker Tobacco Type: cigarettes # Packs/Day (cigarettes): 1 Alcohol Intake: never Substance Use Type: denies use *Occupational Status:: unemployed Housing: house Household Members: spouse *Travel in the last 8 weeks: None - Psychiatric History Expresses thoughts of harming self/others: None Pschychiatric History:: Reports:: Anxiety, Depression Family Hx:: Cancer, Heart Attack, Hypertension Para: 6 Review of Systems - Review of Systems Review of systems:: pertinent systems reviewed and negative unless documented below - *Genitourinary Denies abnormal vaginal bleeding Comments: irregular contractions - Psychiatric Reports anxiety Meds Home Medications Medication Instructions Recorded Confirmed Type Aspirin [Aspir 81] 81 mg PO DAILY 04/27/19 10/25/20 History prenat.vits,shirley,pdv-gelj-piuux 1 tab PO DAILY 01/27/20 10/25/20 History Allergies Allergy/AdvReac Type Severity Reaction Status Date / Time No Known Allergies Allergy Verified 10/20/20 09:32 OB - H&P: Exam - Physical Exam Vital signs: Temp Pulse Resp BP Pulse Ox 98.3 F 94 H 18 131/67 99 10/25/20 05:58 10/25/20 05:58 10/25/20 05:58 10/25/20 05:58 10/25/20 05:58 - Constitutional no acute distress - Routine HEENT Exam Head: Present: normocephalic, atraumatic Eye: Absent: conjunctival icterus ENT: Present: mucous membranes moist - Routine Neck Exam Present: supple - Routine Respiratory Exam Present: CTA bilaterally. Absent: respiratory distress - Routine Cardiovascular Exam Present: RRR - Routine Abdominal Exam Present: soft. Absent: tenderness, distended - Routine Exam Comments: cervix 1/50/-3 - Routine Extremities Exam Present: edema (1+) - Routine Skin Exam Present: intact, dry. Absent: rash - Routine Neurological Exam Present: alert, oriented X3 - Routine Psychiatric Exam Present: anxious - Additional findings FHT 140s OB - Results - Labs Labs: Urine 10/25/20 Range/Units 05:20 Urine Color Yellow (Yellow) Urine Appearance Clear (Clear) Urine pH 5.5 (5.0-8.5) Ur Specific [place] 1.025 (1.005-1.030) Urine Protein Negative (Negative) Urine Glucose (UA) Negative (Negative) OB - A/P Antepartum (1) 38 weeks gestation of Status: Acute (2) Advanced maternal age in multigravida Status: Acute (3) Polyhydramnios, antepartum Status: Acute (4) ventricular septal defect affecting antepartum care of mother Status: Acute (5) Hyperthyroidism Status: Acute (6) Anxiety and depression Status: Acute (7) Previous section Problem det
--- NOTE | 2020-10-25 09:06 | P.PN_ITS ---
[facility] Anesthesia Record Part I Intake, IV Amount: 1,500 Estimated blood loss (mL): 800 Urine output (mL): 200 Blood Pressure: 147/50 SaO2: 100 Pulse Rate: 77 Respiratory Rate: 12 Temperature: 97.1 F Patient is:: Awake, Stable Stable to PACU at:: 09:00
--- NOTE | 2020-10-25 12:07 | P.OP_ITS ---
Date of procedure: 10/25/20 Pre-op Diagnosis:: 1. 38 wks gestation 2. Previous C Section x 4 3. Polyhydramnios 4. AMA 5. Desired sterilization Post-op Diagnosis:: same Procedure performed:: same Surgeon:: Jena Tao MD [employer]er(s):: [employer]ITE MONITOR:: Fredy Tracy Anesthesia: spinal Estimated blood loss (mL): 800 Operative findings:: extensive abdominal/pelvic adhesions excessively thin lower uterine segment, but no rupture of uterus grossly normal fallopian tubes and ovaries bilaterally Operative note:: The patient was taken to the OR and spinal was administered without difficulty. She was prepped and draped in normal sterile fashion. A pfannenstiel skin incision was made with the scalpel and carried down to the fascia. The fascia was incised in the midline and sharply dissected off the rectus muscles. Extensive adhesions of fascia required approximately 15 minutes of dissection. The muscles were in the midline and the peritoneum was entered sharply and extended bluntly. Moderate peritoneal adhesions involving the uterus and bladder required 10 minutes of dissection. The Yang-O self retaining retractor was placed in the abdomen and a bladder flap was created. The uterus was extremely thin in the lower uterine segment, and was bubbling outward, with am niotic fluid visible. The incision was made in this thin portion of the lower uterine segment in a transverse fashion and extended bluntly. Amniotomy was performed and clear fluid noted. The infant was delivered in controlled fashion, without complication or shoulder dystocia. The infant was vigorous at and handed to awaiting pediatricians for evaluation after cord clamped and cut. Cord blood was collected and a cord segment was preserved. The placenta was manually extracted and noted to be intact. The uterus was repaired with 0- vicryl in a running/locked fashion. A second layer was placed for hemostasis and integrity, with the tissue being extremely thin. Both fallopian tubes were occluded with Filshie clips. Surgicell was placed over the uterine incision as an adhesion barrier. The peritoneum was closed with 2-0 vicryl in a running fashion. The fascia was closed with #1 vicryl in a running fashion. The subcutaneous fat was closed with 2-0 vicryl in an interrupted fashion. The skin was closed with raeann. The patient tolerated the procedure well. Sponge, lap, needle and instrument counts were correct x 2. She was taken to PACU awake and in stable condition. Condition: stable Disposition: PACU Specimens:: placenta Complications:: none
--- NOTE | 2020-10-25 14:47 | SUR.OPER ---
0811-viable infant female born at this time
[2020-10-25 14:52] LABS: Microscopic,Cath URINE MICROSCOPIC (MICROSCOPIC)
[2020-10-25 14:53] LABS: Appearance,Urine/Cath CLEAR (Clear); Bilirubin,Cath Negative (Negative); Blood, Urine/Cath Negative (Negative); Color,Urine/Cath YELLOW (Yellow); Glucose,Urine/Cath (UA) Negative (Negative); Ketones,Urine/Cath Negative (Negative); Leukocyte Esterase,Cath Negative (Negative); Nitrate,Cath Negative (Negative); Protein,Urine/Cath Negative (Negative); Urobilinogen,Cath 0.2 EU/dl (0.2)
[2020-10-25 15:12] LABS: Bacteria,Urine/Cath 1+ /lpf; Squamous Epithelial Ur./Cath TNTC #/hpf (0-5); WBC,Urine/Cath Occasional #/hpf (0-3)
[2020-10-26] VITALS: BP 93/50; PULSE 75; RESP 17; TEMP 36.9
[2020-10-26 07:38] LABS: Basophils # 0.1 K/mm3 (0-0.2); Basophils % 0.3 % (0.1-2.0); Eosinophils # 0.8 K/mm3 (0.0-0.4); Eosinophils % 4.8 % (0.1-12.0); Hematocrit 31.4 % (37.0-47.0); Lymphocytes # 2.8 K/mm3 (0.7-4.5); Lymphocytes % 16.8 % (10-50); Mean Corpuscular HGB Conc 31.9 g/dL (31.8-35.4); Mean Corpuscular Hemoglobin 26.8 pg (27.0-31.2); Mean Corpuscular Volume 84.1 fl (81-99); Mean Platelet Volume 8.1 fl (7.4-10.4); Neutrophils # 12.1 K/mm3 (1.8-7.8); Neutrophils % 72.1 % (37.0-80.0); Platelet Count 532 K/mm3 (142-424); Red Blood Count 3.73 M/mm3 (4.20-5.40); Red Cell Distribution Width 14.9 % (11.5-17.5); White Blood Count 16.8 K/mm3 (4.8-10.8)
--- NOTE | 2020-10-26 07:40 | HMH.ANESII ---
[facility] Anesthesia Record Part II Discharge Time: 09:40 Destination: Obstetric PACU nurse assessment reviewed?: Yes Patient Condition:: Good Anesthesia Complications:: None Swallowing reflex intact?: Yes Cyanosis?: No Blood Pressure: 114/73 Pulse Rate: 66 Temperature: 97.1 F Mental Status: Alert & Oriented Pain level:: 2 Nausea and/or vomitting:: None Intake, IV Amount: 0
[2020-10-26 07:41] VITALS: BP 114/73; PULSE 66; TEMP 36.2
[2020-10-26 07:41] LABS: MANUAL DIFFERENTIAL MANUAL DIFFERENTIAL (MANUAL DIFF)
[2020-10-26 10:10] LABS: Eosinophils % 6 % (0-3); Lymphocytes % 14 % (10-50); Monocytes % 4 % (2-9); Neutrophils % 76 % (42-76); Platelet Estimate Slight Increase; RBC Morphology Normal; Total Cells Counted 100
--- NOTE | 2020-10-26 15:09 | [facility].ACPN2 ---
Internal Medicine - PN: Subj *Date: 10/26/20 *Time: 15:09 Interval history: POD #1 repeat CS with BTL anxiety stable on meds asymptomatic with anemia (10.0) tolerating regular diet and voiding without difficulty lochia appropriate Exam Vital signs and Labs for Last 24 Hours: Temp Pulse Resp BP Pulse Ox 97.1 F L 66 17 114/73 98 10/26/20 07:41 10/26/20 07:41 10/26/20 00:00 10/26/20 07:41 10/25/20 20:00 Laboratory Results - last 24 hr 10/25/20 07:55: Urine RBC None, Urine WBC Occasional, Ur Squamous Epith Cells Tntc, Urine Bacteria 1+ 10/26/20 07:11: WBC 16.8 H, RBC 3.73 L D, Hgb 10.0 L, Hct 31.4 L, MCV 84.1, MCH 26.8 L, MCHC 31.9, RDW 14.9, Plt Count 532 H, MPV 8.1, Neut % (Auto) 72.1, Lymph % (Auto) 16.8, [place] % (Auto) 6.0, Eos % (Auto) 4.8, Baso % (Auto) 0.3, Neut # (Auto) 12.1 H, Lymph # (Auto) 2.8, [place] # (Auto) 1.0, Eos # (Auto) 0.8 H, Baso # (Auto) 0.1, Total Counted 100, Neutrophils % (Manual) 76, Lymphocytes % (Manual) 14, Monocytes % (Manual) 4, Eosinophils % (Manual) 6 H, Platelet Estimate Slight increase, RBC Morphology Normal I & O for Last 24 hours: Intake & Output 10/24/20 10/25/20 10/26/20 10/27/20 11:59 11:59 11:59 11:59 Intake Total 1550 / 1550 0 / 0 Output Total 200 / 200 Balance 1350 / 1350 0 / 0 Weight 174 lb Narrative: CONSTITUTIONAL: no acute distress HEENT: mucous membranes moist PULMONARY: breathing unlabored without audible wheezes CV: no tachycardia or visible JVD; normal LE peripheral pulses ABD: soft, ND; appropriately tender but no rebound/guarding : fundus firm at/below umbilicus SKIN: incision well approximated with no drainage, erythema or induration EXT: 1+ edema LEs NEURO: alert/oriented, no altered mental status PSYCH: appropriate mood and demeanor without anxiety/depression Assessment and Plan (1) 38 weeks gestation of Status: Acute Category: Medical Code(s): Z3A.38 - 38 weeks gestation of (2) Advanced maternal age in multigravida Status: Acute Category: Medical Code(s): O09.529 - Supervision of elderly multigravida, unspecified trimester (3) Polyhydramnios, antepartum Status: Acute Category: Medical Code(s): O40.9XX0 - Polyhydramnios, unspecified trimester, not applicable or unspecified (4) ventricular septal defect affecting antepartum care of mother Status: Acute Category: Medical Code(s): O35.8XX0 - Maternal care for other (suspected) abnormality and damage, not applicable or unspecified (5) Hyperthyroidism Status: Acute Category: Medical Code(s): E05.90 - Thyrotoxicosis, unspecified without thyrotoxic crisis or storm (6) Anxiety and depression Status: Acute Category: Medical Code(s): F41.9 - Anxiety disorder, unspecified; F32.9 - Major depressive disorder, single episode, unspecified (7) Previous section Problem details: c section x 4 Status: Acute Category: Surgical Code(s): Z98.891 - History of uterine scar from previous surgery (8) tubal ligation planned Status: Acute Category: Medical (9) Tobacco abuse Status: Acute Category: Medical Code(s): Z72.0 - Tobacco use (10) Anemia due to acute blood loss Status: Acute Category: Medical Code(s): D62 - Acute posthemorrhagic anemia (11) Delivery by section Status: Acute Category: Surgical - Assessment and plan all Dx Assessment and Plan for all problems:: routine postop care continue zoloft for anxiety feso4 for anemia
[2020-10-26 20:17] VITALS: BP 114/70; PULSE 82; RESP 18; TEMP 37.2; O2SAT 97
[2020-10-27 04:31] VITALS: BP 103/59; PULSE 84; RESP 18; TEMP 36.8; O2SAT 97
--- NOTE | 2020-10-27 14:29 | P.PN_ITS ---
Internal Medicine - PN: Subj *Date: 10/27/20 *Time: 14:29 Interval history: POD #2 repeat CS with BTL postop course as expected ambulating and voiding without difficulty tolerating regular diet mother ready for discharge but not to be discharged until tomorrow Exam Vital signs and Labs for Last 24 Hours: Temp Pulse Resp BP Pulse Ox 98.2 F 84 18 103/59 L 97 10/27/20 04:31 10/27/20 04:31 10/27/20 04:31 10/27/20 04:31 10/27/20 04:31 I & O for Last 24 hours: Intake & Output 10/25/20 10/26/20 10/27/20 10/28/20 11:59 11:59 11:59 11:59 Intake Total 1550 / 1550 0 / 0 Output Total 200 / 200 Balance 1350 / 1350 0 / 0 Weight 174 lb Narrative: CONSTITUTIONAL: no acute distress HEENT: mucous membranes moist PULMONARY: breathing unlabored without audible wheezes CV: no tachycardia or visible JVD; normal LE peripheral pulses ABD: soft, ND; appropriately tender but no rebound/guarding : fundus firm at/below umbilicus SKIN: incision well approximated with no drainage, erythema or induration EXT: 1+ edema LEs NEURO: alert/oriented, no altered mental status PSYCH: appropriate mood and demeanor without anxiety/depression Assessment and Plan (1) 38 weeks gestation of Status: Acute Category: Medical Code(s): Z3A.38 - 38 weeks gestation of (2) Advanced maternal age in multigravida Status: Acute Category: Medical Code(s): O09.529 - Supervision of elderly multigravida, unspecified trimester (3) Polyhydramnios, antepartum Status: Acute Category: Medical Code(s): O40.9XX0 - Polyhydramnios, unspecified trimester, not applicable or unspecified (4) ventricular septal defect affecting antepartum care of mother Status: Acute Category: Medical Code(s): O35.8XX0 - Maternal care for other (suspected) abnormality and damage, not applicable or unspecified (5) Hyperthyroidism Status: Acute Category: Medical Code(s): E05.90 - Thyrotoxicosis, unspecified without thyrotoxic crisis or storm (6) Anxiety and depression Status: Acute Category: Medical Code(s): F41.9 - Anxiety disorder, unspecified; F32.9 - Major depressive disorder, single episode, unspecified (7) Previous section Problem details: c section x 4 Status: Acute Category: Surgical Code(s): Z 98.891 - History of uterine scar from previous surgery (8) tubal ligation planned Status: Acute Category: Medical (9) Tobacco abuse Status: Acute Category: Medical Code(s): Z72.0 - Tobacco use (10) Anemia due to acute blood loss Status: Acute Category: Medical Code(s): D62 - Acute posthemorrhagic anemia (11) Delivery by section Status: Acute Category: Surgical - Assessment and plan all Dx Assessment and Plan for all problems:: routine postop care anticipate discharge home tomorrow
--- NOTE | 2020-10-28 10:30 | P.CONPHA_ITS ---
[facility] Pharmacy VTE Monitoring - Patient Demographics Admission date: 10/26/20 Report Date: 10/28/20 Time: 10:30 Allergies/Adverse Reactions: Patient Allergies No Known Allergies Allergy (Verified 10/20/20 09:32) Height: 1.52 m Weight: 78.925 kg Patient Problems: Current Active Problems Anemia due to acute blood loss (Acute) Delivery by section (Acute) 38 weeks gestation of (Acute) Polyhydramnios, antepartum (Acute) ventricular septal defect affecting antepartum care of mother (Acute) Hyperthyroidism (Acute) Anxiety and depression (Acute) tubal ligation planned (Acute) Tobacco abuse (Acute) Previous section (Acute) Advanced maternal age in multigravida (Acute) - VTE Risk Labs: VTE Related Lab Results Hgb 10.0 g/dL (12.2-16.2) L 10/26/20 07:11 Hct 31.4 % (37.0-47.0) L 10/26/20 07:11 Plt Count 532 K/mm3 (142-424) H 10/26/20 07:11 Clinical Trial Participant: No - Prophylaxis VTE Prophylaxis Ordered?: Yes Types of VTE Prophylaxis: TEDS Knee High Location of Applied Device: Bilateral Lower Extremeties
--- NOTE | 2020-10-28 12:28 | HMH.DCSUM ---
General - General Admission date:: 10/25/20 Hospital Course Hospital Course: repeat CS with BTL postop course uncomplicated tolerating regular diet ambulating and voiding without difficulty ready for discharge on pod #3 started on zoloft for anxiety Rhogam Administration: Not Indicated Objective Vital signs: Temp Pulse Resp BP Pulse Ox 98.2 F 84 18 103/59 L 97 10/27/20 04:31 10/27/20 04:31 10/27/20 04:31 10/27/20 04:31 10/27/20 04:31 Narrative: CONSTITUTIONAL: no acute distress HEENT: mucous membranes moist PULMONARY: breathing unlabored without audible wheezes CV: no tachycardia or visible JVD; normal LE peripheral pulses ABD: soft, ND; appropriately tender but no rebound/guarding : fundus firm at/below umbilicus SKIN: incision well approximated with no drainage, erythema or induration EXT: 1+ edema LEs NEURO: alert/oriented, no altered mental status PSYCH: appropriate mood and demeanor without anxiety/depression DS: Diagnosis - Discharge Diagnosis (1) 38 weeks gestation of Status: Acute (2) Advanced maternal age in multigravida Status: Acute (3) Polyhydramnios, antepartum Status: Acute (4) ventricular septal defect affecting antepartum care of mother Status: Acute (5) Hyperthyroidism Status: Acute (6) Anxiety and depression Status: Acute (7) Previous section Status: Acute Problem details: c section x 4 (8) tubal ligation planned Status: Acute (9) Tobacco abuse Status: Acute (10) Anemia due to acute blood loss Status: Acute (11) Delivery by section Status: Acute Discharge Plan - Patient Discharge Instructions ACTIVITY: Continue current activity DIET: regular diet Additional Instructions: No heavy lifting. No strenuous activity. Nothing in the vagina for 6 weeks. No driving while taking pain medication. Patient Instructions: Depression, Hemorrhage, DI for , DI for Pre-eclampsia, [facility] Post Discharge Instructions, Preventing the Spread of Coronavirus Discharge Instructions - Follow up Plan Follow up with: Jena Tao MD [Staff Physician] - 11/11/20 10:30 am Disposition: Home, Self-Residential Medications: Home Medications Medication Instructions Recorded Confirmed Type prenat.vits,shirley,pgg-yups-srimt 1 tab PO DAILY 01/27/20 10/25/20 History Aspirin [Aspirin 81mg EC Tab] 81 mg PO DAILY 10/25/20 10/25/20 History Ibuprofen [Motrin 400mg 800 mg PO Q6HP PRN #30 tab 10/28/20 Rx tablet] Oxycodone HCl [OxyIR 5mg tablet] 5 mg PO Q6HP PRN #30 tab 10/28/20 Rx Sertraline HCl [Zoloft 100mg 100 mg PO DAILY #30 tab 10/28/20 Rx tablet] Prescriptions/Medication Reconciliation: New Acetaminophen [Acetaminophen 325mg tab] 650 mg PO Q4HP PRN tablet PRN Reason: Mild Pain Sertraline HCl [Zoloft 100mg tablet] 100 mg PO DAILY #30 tab Oxycodone HCl [OxyIR 5mg tablet] 5 mg PO Q6HP PRN #30 tab PRN Reason: Moderate To Severe Pain Ibuprofen [Motrin 400mg tablet] 800 mg PO Q6HP PRN #30 tab PRN Reason: Mild To Moderate Pain Continued prenat.vits,shirley,[id number] 1 tab PO DAILY Aspirin [Aspirin 81mg EC Tab] 81 mg PO DAILY - Problem Reconciliation Problems Reviewed?: Yes
== END 2020-10-28 13:30 | disposition home or self-care (01) | DRG 785 ==
PROVIDERS: Admitting Provider Obstetrics & Gynecology; PCP Physician Assistant; Visit Provider Obstetrics & Gynecology
PROC: 0UL70ZZ Occlusion of Bilateral Fallopian Tubes, Open Approach (ICD-10-PCS; CPT 59514; principal; 2020-10-25 07:30)
DX: O41.03X0 Oligohydramnios, third trimester, not applicable or unspecified (principal); Z3A.38 38 weeks gestation of pregnancy; Z37.0 Single live birth; O34.211 Maternal care for low transverse scar from previous cesarean delivery; N85.8 Other specified noninflammatory disorders of uterus; Z30.2 Encounter for sterilization; O35.8XX0 Maternal care for other (suspected) fetal abnormality and damage, not applicable or unspecified; O99.280 Endocrine, nutritional and metabolic diseases complicating pregnancy, unspecified trimester; E05.90 Thyrotoxicosis, unspecified without thyrotoxic crisis or storm
CPT/HCPCS: 59514; 58611; 36415; 59025; 80053; 80305; 81001; 85007; 85014; 85018; 85025; 86706; 86850; 94761; G0283; J2405; U0003

== ENCOUNTER → 2021-02-24 13:02 | Outpatient (CLI) | payer MEDICARE, MEDICAID, SELFPAY ==
--- NOTE | 2021-02-24 13:36 | CT_ITS ---
PROCEDURE: CT ANGIO CHEST PE PROTOCOL CLINCIAL INDICATION: dyspnea s/p childbirth COMPARISON: No exams were available for comparison TECHNIQUE: IV Contrast: 70ML Isovue 370 Axial images obtained with sagittal and coronal reformats. All CT scans at the facility use one or more dose reduction, viz: automated exposure control, ma/kV adjustment per patient size (including targeted exams where dose is matched to indication, i.e. head), or iterative reconstruction technique. FINDINGS: HEART AND MEDIASTINAL STRUCTURES: No evidence of pulmonary embolus, aortic aneurysm, or aortic dissection. LUNGS AND PLEURAL SPACES: Nonspecific small subpleural opacities are present in the lower lobes posteriorly on both sides and may represent dependent changes. No suspicious nodules effusions or infiltrates. Minimal atelectatic or fibrotic change of the lingula. The BONY STRUCTURES: No acute bony abnormalities apparent. UPPER ABDOMEN: Unremarkable. ADDITIONAL FINDINGS: No other significant abnormalities. IMPRESSION: No acute finding. No evidence pulmonary embolus. Dictated by: Bronson Rossi MD 02/24/2021 15:55 Bronson Rossi MD in [facility] 02/24/2021 15:55
== END ==
PROVIDERS: PCP Physician Assistant; Visit Provider Physician Assistant
DX: R06.00 Dyspnea, unspecified (principal)
CPT/HCPCS: 71275; Q9967

== ENCOUNTER → 2021-05-11 13:44 | Outpatient (CLI) | payer MEDICARE, MEDICAID, SELFPAY ==
[2021-05-11 13:52] LABS: Basophils # 0.1 K/mm3 (0-0.2); Basophils % 1.2 % (0.1-2.0); Eosinophils # 0.4 K/mm3 (0.0-0.4); Eosinophils % 5.6 % (0.1-12.0); Hematocrit 45.4 % (37.0-47.0); Hemoglobin 14.6 g/dL (12.2-16.2); Lymphocytes # 2.6 K/mm3 (0.7-4.5); Lymphocytes % 32.5 % (10-50); Mean Corpuscular HGB Conc 32.2 g/dL (31.8-35.4); Mean Corpuscular Hemoglobin 27.9 pg (27.0-31.2); Mean Corpuscular Volume 86.8 fl (81-99); Mean Platelet Volume 9.5 fl (7.4-10.4); Monocytes # 0.5 K/mm3 (0.1-1.0); Monocytes % 6.5 % (1.7-9.3); Neutrophils # 4.3 K/mm3 (1.8-7.8); Neutrophils % 54.2 % (37.0-80.0); Platelet Count 493 K/mm3 (142-424); Red Blood Count 5.23 M/mm3 (4.20-5.40); Red Cell Distribution Width 14.3 % (11.5-17.5); White Blood Count 7.9 K/mm3 (4.8-10.8)
[2021-05-11 13:55] LABS: Alanine Aminotransferase 20 U/L (12-78); Albumin Level 4.6 g/dl (3.5-5.0); Albumin/Globulin Ratio 1.3 (1.1-1.8); Alkaline Phosphatase 73 U/L (38-126); Anion Gap 16.6 mEq/L (5-15); Aspartate Amino Transferase 25 U/L (14-36); Bilirubin,Total 1.1 mg/dl (0.2-1.3); Blood Urea Nitrogen 10 mg/dl (7-17); Calcium 9.9 mg/dl (8.4-10.2); Carbon Dioxide 23 mmol/L (22.0-30.0); Chloride 104 mmol/L (98-107); Chol/HDL Ratio 3.2 (1-3.5); Cholesterol 206 mg/dl (140-200); Estimated Glomerular Filt Rate 111 ml/min (>60); GFR (African American) 135 ML/MIN (>60); Globulin 3.5 g/dL (1.3-3.2); Glucose 94 mg/dl (74-100); HDL Cholesterol 65 mg/dl (40-60); Potassium 4.6 mmoL/L (3.5-5.1); Sodium 139 mmol/L (136-145); Total Protein,Serum 8.1 g/dl (6.3-8.2); Triglycerides 61 mg/dl (30-150); VLDL Cholesterol 12 mg/dL (0-40)
[2021-05-11 14:06] LABS: Direct LDL Cholesterol 123.56 mg/dL (100-129)
[2021-05-11 14:13] LABS: T4 (Thyroxine) 6.9 ug/dl (5.53-11.0)
[2021-05-11 14:26] LABS: Thyroid Stimulating Hormone 0.71 uIU/mL (0.465-4.68)
== END ==
PROVIDERS: Visit Provider Nurse Practitioner Family
DX: E04.1 Nontoxic single thyroid nodule (principal); E05.90 Thyrotoxicosis, unspecified without thyrotoxic crisis or storm
CPT/HCPCS: 80053; 80061; 84436; 84443; 85025

== ENCOUNTER → 2021-05-20 13:34 | Outpatient (CLI) | payer MEDICARE, MEDICAID, SELFPAY ==
--- NOTE | 2021-05-20 13:34 | US_ITS ---
PROCEDURE: US THYROID CLINICAL INDICATION: nodule COMPARISON: US US THYROID from 01/26/[address] SOFT TISSUE NECK WO CON from 05/20/2021 FINDINGS: Right lobe: 4.5 x 1.4 x 1.5 cm.. There is a 5 mm mixed nodule in the lower pole on the right. This previously appeared solid but is showing some cystic degeneration Left lobe: 3.9 x 1.8 x 0.8 cm with homogeneous echogenicity. Isthmus: Unremarkable Additional findings: IMPRESSION: 5 mm mixed nodule lower pole on the right, TR level 2 benign-appearing. Dictated by: Bronson Rossi MD 05/20/2021 15:51 Bronson Rossi MD in [facility] 05/20/2021 15:51
--- NOTE | 2021-05-20 13:34 | CT_ITS ---
PROCEDURE: CT SOFT TISSUE NECK WO CON CLINICAL HISTORY: Thyroid nodule COMPARISON: No exams were available for comparison TECHNIQUE: Oral Contrast: None IV Contrast: None Axial images obtained with sagittal and coronal reformats. All CT scans at the facility use one or more dose reduction, viz: automated exposure control, ma/kV adjustment per patient size (including targeted exams where dose is matched to indication, i.e. head), or iterative reconstruction technique. FINDINGS: Orbits have an unremarkable appearance. Nasopharynx is unremarkable. There is mild tonsillar hypertrophy with the UVL deviated toward left. The parotids and submandibular glands have an unremarkable appearance. The oropharynx, hypopharynx, epiglottis, and glottic region are unremarkable. Subglottic area is unremarkable. There is a 7 mm hypodensity along the posterior aspect of the right thyroid gland inferiorly corresponding to the mixed nodule noted on the ultrasound. There are scattered small cervical lymph nodes on both sides. No dominant adenopathy evident. Mild mucosal thickening involves the ethmoid sinuses. No sinus air-fluid levels evident. There are impacted bilateral maxillary and mandibular wisdom teeth. Artifact is present from multiple fillings. Lung apices are clear. IMPRESSION: No acute finding. Small right thyroid nodule. Please see ultrasound for further description. Bilateral maxillary and mandibular impacted wisdom teeth Dictated by: Bronson Rossi MD 05/21/2021 08:45 Bronson Rossi MD in [facility] 05/21/2021 08:45
== END ==
PROVIDERS: PCP Physician Assistant; Visit Provider Nurse Practitioner Family
DX: E04.1 Nontoxic single thyroid nodule (principal)
CPT/HCPCS: 70490; 76536

== ENCOUNTER → 2021-06-07 16:37 | Outpatient (CLI) | payer MEDICARE, MEDICAID, SELFPAY ==
--- NOTE | 2021-06-07 16:43 | XR_ITS ---
PROCEDURE: XR FOOT WT BEARING LT 3V CLINICAL INDICATION: L Foot pain COMPARISON: No exams were available for comparison FINDINGS: No fracture or dislocation. No lytic or blastic change. There is normal mineralization. The joint spaces are well-preserved. No significant degenerative/arthritic changes. No erosive changes evident. Other findings:None. IMPRESSION: No acute findings. Dictated by: Bronson Rossi MD 06/08/2021 07:47 Bronson Rossi MD in [facility] 06/08/2021 07:47
== END ==
PROVIDERS: PCP Nurse Practitioner Family; Visit Provider Nurse Practitioner Family
DX: S93.602A Unspecified sprain of left foot, initial encounter (principal)
CPT/HCPCS: 73630